=== PATIENT | male | born 1960 | race African-American/Black ===

== ENCOUNTER 2019-05-09 04:42 | Inpatient (IN) | payer MEDICARE, MEDICAID ==
[~2019-05-09] VITALS: Ht 165.1 cm; Wt 66.8 kg
[2019-05-09 05:32] LABS: Basophils # (auto) 0 uL; Basophils % (auto) 0.4 % (0.0-2.0); Eosinophils # (auto) 0.1 uL; Mean Corpuscular Hgb Conc. 32.4 g/dL (32.0-36.0); Monocytes # (auto) 0.7 uL; Neutrophils # (auto) 7.5 uL; White Blood Cell 9.3 10^3/uL (4.4-10.8)
[2019-05-09 05:35] LABS: Eosinophils % (auto) 1.3 % (0.0-7.0); Hematocrit 37.7 % (41.0-53.0); Hemoglobin 12.2 g/dL (13.5-17.5); Lymphocytes # (auto) 0.9 uL; Lymphocytes % (auto) 9.8 % (10.0-50.0); Mean Corpuscular Hemoglobin 25.4 pg (28.0-32.0); Mean Corpuscular Volume 78.5 fL (80.0-100.0); Monocytes % (auto) 7.3 % (0.0-12.0); Neutrophils % (auto) 81.2 % (37.0-80.0); Platelet Count (auto) 212 10^3/uL (140-450); Red Cell Distribution Width 18.4 % (11.8-14.3)
[2019-05-09 05:42] LABS: Calcium 9.7 mg/dL (8.5-10.1); Potassium 4.5 mmol/L (3.5-5.1)
[2019-05-09 05:44] LABS: BUN/Creatinine Ratio 5.2
[2019-05-09 05:45] LABS: INR 1.09 (0.9-1.15); Partial Thromboplastin Time 28.5 sec (23.64-32.05)
[2019-05-09 05:48] LABS: Bilirubin, Total 0.4 mg/dL (0.2-1.0); Total Protein 9.6 g/dL (6.4-8.2)
[2019-05-09] MEDS ORDERED: ONDANSETRON HCL 4 MG/2 ML VIAL IV ONE (06:00)
[2019-05-09] MEDS ORDERED: MORPHINE SULFATE 4 MG/ML SYR/VIAL IV ONE (06:00)
[2019-05-09] MEDS ORDERED: ENOXAPARIN SOD 60 MG/0.6 ML SYRINGE SC ONE (06:15)
[2019-05-09] MEDS ORDERED: HEPARIN SODIUM (PORCINE) 5000 UNITS/ML 1ML VIAL IV ONE (06:30)
[2019-05-09] MEDS ORDERED: METOPROLOL TARTRATE 1MG/1ML-5ML VIAL IV ONE (07:00)
[2019-05-09] MEDS ORDERED: NITROGLYCERIN 0.4 MG SL TAB SL PRN (07:15)
[2019-05-09] MEDS ORDERED: MORPHINE SULF INJ 2 MG/ML SYRINGE 1ML IV PRN (07:15)
[2019-05-09] MEDS ORDERED: ACETAMINOPHEN 325 MG TAB PO PRN (07:15)
[2019-05-09 07:42] LABS: Cholesterol 218 mg/dL (< 200); HDL Cholesterol 57 mg/dL (40-59); LDL Cholesterol 127 mg/dL (< 100); Triglycerides 167 mg/dL (< 150)
[2019-05-09] MEDS ORDERED: NITROGLYCERIN 50MG/250ML 250 ML IV ONE (07:46)
[2019-05-09] MEDS: ASPirin 81 mg TAB PO SCH (08:15)
--- NOTE | 2019-05-09 08:53 | NUR ---
trop 5.32 informed MD Moran at this time. pt to have [facility]
[2019-05-09] MEDS ORDERED: LIDOCAINE 2%HCL (LOCAL ANESTH.) INJ 20ML MDV ONE (09:45)
[2019-05-09] MEDS ORDERED: IODIXANOL 320MG/ML 100ML BTL IV ONE ×2 (09:45→10:03)
[2019-05-09] MEDS ORDERED: ANGIOMAX 250 MG VIAL IV ONE (09:58)
[2019-05-09] MEDS ORDERED: SODIUM CHL 0.9% 0 ML ONE (09:59)
[2019-05-09] MEDS ORDERED: fentaNYL CITRATE 100 MCG/2 ML VL ONE (09:59)
[2019-05-09] MEDS ORDERED: MIDAZOLAM HCL 1MG/1ML-2 ML VIAL ONE (09:59)
[2019-05-09] MEDS ORDERED: METOPROLOL TARTRATE 25 MG TAB PO SCH (10:00)
[2019-05-09] MEDS ORDERED: ENOXAPARIN SOD 60 MG/0.6 ML SYRINGE SC SCH ×2 (10:00→12:00)
[2019-05-09] MEDS: LISINOPRIL 10 MG TAB PO SCH (10:00)
[2019-05-09] MEDS: CLOPIDOGREL BISULFATE 75 MG TAB PO SCH (10:00)
[2019-05-09] MEDS: DOCUSATE SOD 100 MG CAP PO SCH (10:00)
[2019-05-09] MEDS ORDERED: ONDANSETRON HCL 4 MG/2 ML VIAL IM ONE (10:42)
[2019-05-09] MEDS ORDERED: ONDANSETRON HCL 4 MG/2 ML VIAL ONE (10:45)
[2019-05-09] MEDS ORDERED: hydrALAZINE HCL 25 MG TAB PO ONE (11:45)
[2019-05-09] MEDS ORDERED: ATENOLOL 25 MG TAB PO ONE (11:45)
[2019-05-09] MEDS ORDERED: amLODIPine BESYLATE 5 MG TAB PO ONE (11:45)
[2019-05-09] MEDS ORDERED: SODIUM CHLOR 0.9% PF (SALINE LOCK) 10ML VIAL/SYR IV SCH (14:00)
[2019-05-09] MEDS: SODIUM CHLOR 0.9% PF (SALINE LOCK) 10ML VIAL/SYR IV SCH ×2 (14:00→21:52)
[2019-05-09] MEDS ORDERED: ISOSORBIDE DINITRATE 10 MG TAB PO ONE (14:30)
--- NOTE | 2019-05-09 16:17 | NUR ---
Telemetry admit from [employer]elry Sales Associate DAR BARRETT admitted to Telemetry unit after SBAR received. Patient oriented to primary RN, unit, room, bed, and unit policies regarding patient care and visiting hours. Patient now on continuous telemetry monitoring, tele box # 50. Patient placed on bedside oxygen, weighed by bedscale and encouraged to call if they need something. All questions and concerns addressed, patient verbalized understanding. CAll light placed within reach and patient encouraged to call for assistance.
[2019-05-09] MEDS ORDERED: RANO500T3 (18:30)
[2019-05-09] MEDS ORDERED: CARV6.2551 (18:30)
[2019-05-09] MEDS ORDERED: SEVE800T10 (18:30)
[2019-05-09] MEDS ORDERED: ASPI1CHW5 (18:30)
[2019-05-09] MEDS ORDERED: ISOS20TA56 (18:30)
[2019-05-09] MEDS ORDERED: CLON0.2T (18:30)
[2019-05-09] MEDS ORDERED: BENA40TA7 (18:30)
[2019-05-09] MEDS ORDERED: ATOR20TA50 (18:30)
--- NOTE | 2019-05-09 19:30 | NUR ---
received pt from day rn poc reviewed
[2019-05-09] MEDS: ISOSORBIDE DINITRATE 10 MG TAB PO SCH (19:39)
--- NOTE | 2019-05-09 20:00 | NUR ---
right groin site dry and intact, pulses palpable
--- NOTE | 2019-05-09 20:46 | NUR ---
hospitalist paged pt has constant episodes of n/v
[2019-05-09] MEDS: ATORVASTATIN 20 MG TAB PO SCH (21:44)
[2019-05-09] MEDS: hydrALAZINE HCL 25 MG TAB PO SCH (21:45)
[2019-05-09] MEDS: ATENOLOL 25 MG TAB PO SCH (21:46)
[2019-05-09 22:00] VITALS: BP 148/94
--- NOTE | 2019-05-09 23:16 | NUR ---
pt resting comfortable no c/o nausea or pain, call light within reach
--- NOTE | 2019-05-10 00:14 | NUR ---
pt awoke c/o insomnia and hiccups, orders received from hospitalist
[2019-05-10] MEDS ORDERED: TEMAZEPAM 15 MG CAP PO PRN (00:15)
[2019-05-10] MEDS: DOCUSATE SOD 100 MG CAP PO SCH (00:36)
[2019-05-10] MEDS: ONDANSETRON HCL 4 MG/2 ML VIAL IV PRN ×2 (00:37→10:12)
[2019-05-10 05:00] VITALS: BP 143/84
[2019-05-10] MEDS: SODIUM CHLOR 0.9% PF (SALINE LOCK) 10ML VIAL/SYR IV SCH ×3 (06:29→22:06)
[2019-05-10] MEDS: ISOSORBIDE DINITRATE 10 MG TAB PO SCH ×3 (06:42→18:17)
--- NOTE | 2019-05-10 06:44 | NUR ---
awoke resp even and unlabored, right groin dressing dry and intact no c/o discomfort
--- NOTE | 2019-05-10 08:01 | NUR ---
report given to am nurse poc reviewed
--- NOTE | 2019-05-10 08:02 | NUR ---
Opening Shift Note Assumed care of patient, awake and alert, sitting up in bed. Patient stated that he is feeling much better this morning. No S/S of distress/SOB or pain. Instructed on POC and to call for assist PRN, will continue to monitor for changes Q1hr and PRN.
[2019-05-10 08:52] VITALS: BP 146/76
[2019-05-10] MEDS ORDERED: ASPirin 81 mg TAB PO SCH (10:00)
[2019-05-10] MEDS: CLOPIDOGREL BISULFATE 75 MG TAB PO SCH (10:13)
[2019-05-10] MEDS: hydrALAZINE HCL 25 MG TAB PO SCH ×2 (10:14→22:05)
[2019-05-10] MEDS: amLODIPine BESYLATE 5 MG TAB PO SCH (10:14)
[2019-05-10] MEDS: ASPirin 81 mg TAB PO SCH (10:15)
[2019-05-10] MEDS: ATENOLOL 25 MG TAB PO SCH ×2 (10:15→22:04)
[2019-05-10] MEDS: LISINOPRIL 10 MG TAB PO SCH (10:15)
--- NOTE | 2019-05-10 12:00 | NUR ---
Dialysis nurse at bedside. No dialysis order in eMAR yet.
[2019-05-10 12:43] VITALS: BP 156/85
[2019-05-10] MEDS ORDERED: SODIUM CHL 0.9% 1000 ML BAG XX ONE (13:00)
--- NOTE | 2019-05-10 13:15 | NUR ---
Nephrology Child Caregiver (Dr. Velez) Rounded on patient as per apparatus cleaner.
[2019-05-10] MEDS ORDERED: ISOS10TA2 PO ×2 (15:28→15:29)
[2019-05-10] MEDS ORDERED: AML5T PO (15:28)
[2019-05-10] MEDS ORDERED: HYDR-2691 PO (15:28)
[2019-05-10] MEDS ORDERED: ASPI81CH43 PO (15:28)
[2019-05-10] MEDS ORDERED: LISI10TA6 PO (15:28)
[2019-05-10] MEDS ORDERED: CLOP75TA28 PO (15:28)
[2019-05-10] MEDS ORDERED: ATOR20TA50 PO (15:28)
[2019-05-10] MEDS ORDERED: ATEN25TA PO (15:28)
[2019-05-10] MEDS ORDERED: OMNIPAQUE ORAL SOLN 500ml 12mg/ml PO ONE (15:46)
--- NOTE | 2019-05-10 16:00 | NUR ---
Dialysis Completed 2.2L taken off. B/P. 149/82
[2019-05-10 16:26] VITALS: BP 141/81
--- NOTE | 2019-05-10 19:10 | NUR ---
Opening Shift Note Received report from day shift nurseLyly. Assumed care of patient. Patient is awake, alert, orientated x 4. No S/S of distress/SOB or pain. Bed brakes are locked and call light is with in reach. Bed is in lowest position with side rails up x 2. HOB is 30 degrees. Instructed on POC and to call for assist PRN, will continue to monitor for changes Q1hr and PRN.
[2019-05-10 20:00] VITALS: BP 141/81
[2019-05-10] MEDS: ATORVASTATIN 20 MG TAB PO SCH (22:05)
[2019-05-10] MEDS: PANTOPRAZOLE 40 MG TAB PO SCH (22:05)
[2019-05-10 22:12] VITALS: BP 142/74
[2019-05-11] MEDS: ONDANSETRON HCL 4 MG/2 ML VIAL IV PRN (03:25)
--- NOTE | 2019-05-11 03:51 | NUR ---
N/V Pt exhibited some nausea and vomiting. Ondansetron 4mg IV given.
[2019-05-11 05:05] VITALS: BP 128/73
[2019-05-11] MEDS: SODIUM CHLOR 0.9% PF (SALINE LOCK) 10ML VIAL/SYR IV SCH (06:17)
[2019-05-11] MEDS: ISOSORBIDE DINITRATE 10 MG TAB PO SCH (06:18)
--- NOTE | 2019-05-11 07:30 | NUR ---
Opening Shift Note RECEIVED REPORT FROM NOC RN. Assumed care of patient, awake and alert. PATIENT ON OXYGEN AT 2 LPM VIA NASAL CANNULA WITH no S/S of distress/SOB or pain. BED IN LOWEST, LOCKED POSITION WITH SIDERAILS UP x2 AND CALL LIGHT WITHIN REACH. Instructed on POC and to call for assist PRN, will continue to monitor for changes Q1hr and PRN.
[2019-05-11 09:00] VITALS: BP 123/63
[2019-05-11] MEDS ORDERED: LACTULOSE 20Gm/30ML SOLN PO ONE (09:30)
[2019-05-11] MEDS: hydrALAZINE HCL 25 MG TAB PO SCH (10:00)
[2019-05-11] MEDS: DOCUSATE SOD 100 MG CAP PO SCH (10:05)
[2019-05-11] MEDS: PANTOPRAZOLE 40 MG TAB PO SCH (10:05)
[2019-05-11] MEDS: CLOPIDOGREL BISULFATE 75 MG TAB PO SCH (10:05)
[2019-05-11] MEDS: ASPirin 81 mg TAB PO SCH (10:05)
[2019-05-11] MEDS: LISINOPRIL 10 MG TAB PO SCH (10:06)
[2019-05-11] MEDS: amLODIPine BESYLATE 5 MG TAB PO SCH (10:07)
[2019-05-11] MEDS: ATENOLOL 25 MG TAB PO SCH (10:07)
[2019-05-11 13:00] VITALS: BP 147/82
[2019-05-11 13:13] VITALS: BP 123/63
--- NOTE | 2019-05-11 14:45 | NUR ---
TELE BOX SENT BACK TO ICU VIA BULLET.
--- NOTE | 2019-05-11 15:50 | NUR ---
assessment Patient is a 58 year old male who is alert and oriented. Patients cognitive abilities are intact. Prior to admission patient lived home with family and functioned with assistance. Per patient he will return home to his prior living arrangements post discharge and family will transport him home. Patient informed me he is on service with [facility] at 12pm. Patient has a daily caregiver Bibi. Patient has no safety issues returning home. Patient informed me he needs help with his medications. Patient will need a home health order for medication management and safety eval on discharge. I informed patient he has a right to speak to a high school social science teacher regarding all care. I informed patient he has a right to participate in any and all discharge planning. Patient does not have a POA and advanced directive. I have offered patient information on POA and advanced directives. I informed the patient the advantages and benefits of having an Advanced Directive. Patient verbalized understanding and agreed to discharge plan. Addendum: 05/11/19 at 1553 by Lynsey MCKINNEY Amended: Links added.
--- NOTE | 2019-05-11 15:53 | NUR ---
re-assessment Per ss consult community health for vitals and med management. Patient has been given a list of medicare providers. Per patient he has no preference on who provides service. MD [facility]. Waiting for reply back now. Addendum: 05/11/19 at 1554 by Lynsey Bailon Amended: Links added.
== END 2019-05-11 14:58 | disposition home health service (06) | DRG 280 ==
LOC: EDBD 04:42 → ER 04:42 → TELE 04:43 → TELE-WESTW 18:21
PROVIDERS: ADMIT Hospitalist; ATTEND Internal Medicine
PROC: B211YZZ Fluoroscopy of Multiple Coronary Arteries using Other Contrast (ICD-10-PCS; principal; 2019-05-09)
PROC: 5A1D70Z Performance of Urinary Filtration, Intermittent, Less than 6 Hours Per Day (ICD-10-PCS; 2019-05-10)
DX: I21.4 Non-ST elevation (NSTEMI) myocardial infarction (principal); N18.6 End stage renal disease; I12.0 Hypertensive chronic kidney disease with stage 5 chronic kidney disease or end stage renal disease; I16.9 Hypertensive crisis, unspecified; F41.9 Anxiety disorder, unspecified; R13.10 Dysphagia, unspecified; D50.9 Iron deficiency anemia, unspecified; I25.10 Atherosclerotic heart disease of native coronary artery without angina pectoris; I25.2 Old myocardial infarction; Z99.2 Dependence on renal dialysis; Z91.19 Patient's noncompliance with other medical treatment and regimen; Z95.5 Presence of coronary angioplasty implant and graft; Z79.899 Other long term (current) drug therapy
CPT/HCPCS: 36415; 71045; 74176; 80053; 80061; 80320; 83735; 83880; 84484; 85025; 85379; 85610; 85730; 87081; 93005; 96372; 96374; 96375; 99152; G0378; J1642; J2250; J2405; Q9967

== ENCOUNTER 2020-09-25 22:15 | Inpatient (IN) | payer MEDICARE, MEDICAID ==
[~2020-09-25] VITALS: Ht 167.6 cm; Wt 55.1 kg
[~2020-09-25 22:15] MED LIST: AML5T PO; ASPI1CHW5; ASPI81CH43 PO; ATEN25TA PO; ATOR20TA50; ATOR20TA50 PO; CLOP75TA28 PO; HYDR25TA87 PO; ISOS10TA2 PO; ISOS20TA5; LISI-716 PO; RANO500T3; SEVE800T10
[2020-09-25] MEDS ORDERED: MORPHINE SULFATE 4 MG/ML SYR/VIAL IV ONE (22:30)
[2020-09-25] MEDS ORDERED: ONDANSETRON HCL 4 MG/2 ML VIAL IV ONE (22:30)
[2020-09-25 23:07] LABS: Basophils # (auto) 0 10 ^3/uL (0-0.2); Basophils % (auto) 0.6 % (0.0-2.0); Eosinophils # (auto) 0.2 10 ^3/uL (0-0.8); Eosinophils % (auto) 2.2 % (0.0-7.0); Hematocrit 22.9 % (41.0-53.0); Hemoglobin 7.4 g/dL (13.5-17.5); Lymphocytes # (auto) 0.5 10 ^3/uL (0.4-5.4); Lymphocytes % (auto) 6.2 % (10.0-50.0); Mean Corpuscular Hemoglobin 25.7 pg (28.0-32.0); Mean Corpuscular Hgb Conc. 32.1 g/dL (32.0-36.0); Mean Corpuscular Volume 79.9 fL (80.0-100.0); Monocytes # (auto) 0.5 10 ^3/uL (0-1.3); Monocytes % (auto) 7.2 % (0.0-12.0); Neutrophils # (auto) 6.3 10 ^3/uL (1.6-8.6); Neutrophils % (auto) 83.8 % (37.0-80.0); Red Blood Cells 2.87 10^6/uL (4.5-5.90); Red Cell Distribution Width 19.5 % (11.8-14.3); White Blood Cell 7.5 10^3/uL (4.4-10.8)
[2020-09-25 23:26] LABS: BUN/Creatinine Ratio 5.7; Calcium 8.7 mg/dL (8.5-10.1); Potassium 4.3 mmol/L (3.5-5.1)
[2020-09-25 23:32] LABS: Bilirubin, Total 0.6 mg/dL (0.2-1.0); Magnesium 2.1 mg/dL (1.6-2.6); Total Protein 7.1 g/dL (6.4-8.2)
[2020-09-25] MEDS ORDERED: MORPHINE SULFATE INJECTION 2 MG/ML SYRG IV ONE (23:45)
[2020-09-25 23:48] VITALS: BP 110/71
[2020-09-26] VITALS (9 sets, daily range): BP systolic 100–123; BP diastolic 65–73
[2020-09-26] MEDS ORDERED: PIPERACILLIN-TAZOB 3.375GM 100 ML IV ONE (02:45)
[2020-09-26] MEDS ORDERED: AZITHROMYCIN 500MG/ 250ML 250 ML IV ONE (02:45)
[2020-09-26] MEDS ORDERED: ONDANSETRON HCL 4 MG/2 ML VIAL IV ONE (03:45)
[2020-09-26] MEDS ORDERED: TEMAZEPAM 15 MG CAP PO PRN (06:00)
[2020-09-26] MEDS ORDERED: ALBUTEROL SULF 2.5 MG/0.5ML(0.5%) NEB SOLN NEB PRN (06:00)
[2020-09-26] MEDS ORDERED: NITROGLYCERIN 0.4 MG SL TAB SL PRN (06:00)
[2020-09-26 07:41] LABS: Hematocrit 22.1 % (41.0-53.0)
[2020-09-26] MEDS: SEVELAMER 800 MG TAB PO SCH ×3 (08:30→18:46)
[2020-09-26] MEDS ORDERED: SODIUM CHL 0.9% 1000 ML BAG XX ONE (08:45)
[2020-09-26] MEDS ORDERED: cefTRIAXone 1GM/50ML D5W 50 ML IV SCH (09:00)
[2020-09-26] MEDS: CLOPIDOGREL BISULFATE 75 MG TAB PO SCH (09:56)
[2020-09-26] MEDS ORDERED: ATENOLOL 25 MG TAB PO SCH (10:00)
[2020-09-26] MEDS ORDERED: ASPirin 81 mg TAB PO SCH (10:00)
[2020-09-26] MEDS ORDERED: amLODIPine BESYLATE 5 MG TAB PO SCH (10:00)
[2020-09-26] MEDS ORDERED: DexAMETHasone SOD PHOS 10MG/1ML VIAL INJ IV SCH (10:00)
[2020-09-26] MEDS: ONDANSETRON HCL 4 MG/2 ML VIAL IV PRN (10:57)
[2020-09-26] MEDS: MORPHINE SULFATE INJECTION 2 MG/ML SYRG IV PRN ×2 (10:57→18:46)
[2020-09-26] MEDS: RANOLAZINE ER 500 MG TAB PO SCH (17:21)
[2020-09-26] MEDS: ATENOLOL 25 MG TAB PO SCH (17:21)
[2020-09-26] MEDS ORDERED: AZITHROMYCIN 500MG/ 250ML 250 ML IV SCH (21:00)
[2020-09-26] MEDS ORDERED: EPOETIN ALFA-EPBX 10,000 UNIT/1ML VIAL SC ONE (21:00)
[2020-09-26] MEDS ORDERED: VANCOMYCIN PER PHARMACY 0 MG IV SCH (21:15)
[2020-09-26] MEDS ORDERED: PIPERACILLIN-TAZOB 2.25GM 0.75 GM in D5W 5% 50 ML IV SCH (21:15)
[2020-09-26] MEDS ORDERED: VANCOMYCIN 1GM/250ML 250 ML IV ONE (21:30)
[2020-09-27] MEDS: ATENOLOL 25 MG TAB PO SCH ×3 (00:06→21:59)
[2020-09-27] MEDS: ATORVASTATIN 20 MG TAB PO SCH ×2 (00:07→22:00)
[2020-09-27] MEDS: RANOLAZINE ER 500 MG TAB PO SCH ×3 (00:07→21:58)
[2020-09-27] MEDS: PIPERACILLIN-TAZOB 2.25GM 50 ML IV SCH ×5 (00:08→22:00)
[2020-09-27] MEDS: ACETAMINOPHEN 325 MG TAB PO PRN (01:05)
[2020-09-27 06:41] LABS: Eosinophils # (auto) 0 10 ^3/uL (0-0.8); Eosinophils % (auto) 0.1 % (0.0-7.0); Lymphocytes # (auto) 0.5 10 ^3/uL (0.4-5.4); Mean Corpuscular Volume 80.2 fL (80.0-100.0); Monocytes # (auto) 0.6 10 ^3/uL (0-1.3)
[2020-09-27 06:42] LABS: Basophils # (auto) 0.1 10 ^3/uL (0-0.2); Basophils % (auto) 0.8 % (0.0-2.0); Hematocrit 28.5 % (41.0-53.0); Hemoglobin 9.3 g/dL (13.5-17.5); Lymphocytes % (auto) 6.1 % (10.0-50.0); Mean Corpuscular Hemoglobin 26.3 pg (28.0-32.0); Mean Corpuscular Hgb Conc. 32.8 g/dL (32.0-36.0); Monocytes % (auto) 8.2 % (0.0-12.0); Neutrophils # (auto) 6.6 10 ^3/uL (1.6-8.6); Neutrophils % (auto) 84.8 % (37.0-80.0); Red Blood Cells 3.55 10^6/uL (4.5-5.90); Red Cell Distribution Width 18.7 % (11.8-14.3); White Blood Cell 7.8 10^3/uL (4.4-10.8)
[2020-09-27 06:52] LABS: Albumin 3.3 g/dL (3.4-5.0); Calcium 9.4 mg/dL (8.5-10.1); Potassium 4.4 mmol/L (3.5-5.1)
[2020-09-27 06:56] LABS: BUN/Creatinine Ratio 6.2; Bilirubin, Total 0.6 mg/dL (0.2-1.0)
[2020-09-27] MEDS: MORPHINE SULFATE INJECTION 2 MG/ML SYRG IV PRN ×2 (08:29→21:33)
[2020-09-27] MEDS: CLOPIDOGREL BISULFATE 75 MG TAB PO SCH (09:51)
[2020-09-27] MEDS: ASPirin 81 mg TAB PO SCH (09:51)
[2020-09-27] MEDS: SEVELAMER 800 MG TAB PO SCH ×3 (09:53→18:00)
[2020-09-27] MEDS: ONDANSETRON HCL 4 MG/2 ML VIAL IV PRN (19:39)
[2020-09-27] MEDS ORDERED: AZITHROMYCIN 250 MG TAB PO ONE (21:45)
[2020-09-28] MEDS: ONDANSETRON HCL 4 MG/2 ML VIAL IV PRN ×3 (05:02→22:41)
[2020-09-28] MEDS: PIPERACILLIN-TAZOB 2.25GM 50 ML IV SCH ×3 (05:57→21:33)
[2020-09-28] MEDS ORDERED: SODIUM CHL 0.9% 1000 ML BAG XX ONE (07:00)
[2020-09-28] MEDS: SEVELAMER 800 MG TAB PO SCH ×3 (08:00→18:16)
[2020-09-28 09:27] LABS: Basophils # (auto) 0.1 10 ^3/uL (0-0.2); Eosinophils # (auto) 0 10 ^3/uL (0-0.8); Hematocrit 24.4 % (41.0-53.0); Hemoglobin 7.9 g/dL (13.5-17.5); Lymphocytes # (auto) 0.4 10 ^3/uL (0.4-5.4); Monocytes # (auto) 0.6 10 ^3/uL (0-1.3); Neutrophils # (auto) 5.3 10 ^3/uL (1.6-8.6); White Blood Cell 6.4 10^3/uL (4.4-10.8)
[2020-09-28 09:29] LABS: Basophils % (auto) 0.8 % (0.0-2.0); Eosinophils % (auto) 0.6 % (0.0-7.0); Lymphocytes % (auto) 6.3 % (10.0-50.0); Mean Corpuscular Hemoglobin 25.8 pg (28.0-32.0); Mean Corpuscular Hgb Conc. 32.2 g/dL (32.0-36.0); Mean Corpuscular Volume 79.9 fL (80.0-100.0); Neutrophils % (auto) 83.3 % (37.0-80.0); Nucleated Red Blood Cells % 0.2 %; Red Blood Cells 3.06 10^6/uL (4.5-5.90); Red Cell Distribution Width 19.6 % (11.8-14.3)
[2020-09-28 09:49] LABS: BUN/Creatinine Ratio 6.9; Calcium 8.2 mg/dL (8.5-10.1); Potassium 4.4 mmol/L (3.5-5.1)
[2020-09-28] MEDS: RANOLAZINE ER 500 MG TAB PO SCH ×2 (10:00→21:33)
[2020-09-28] MEDS: ATENOLOL 25 MG TAB PO SCH (10:00)
[2020-09-28] MEDS: AZITHROMYCIN 250 MG TAB PO SCH (10:00)
[2020-09-28] MEDS: ASPirin 81 mg TAB PO SCH (10:00)
[2020-09-28] MEDS: CLOPIDOGREL BISULFATE 75 MG TAB PO SCH (10:00)
[2020-09-28] MEDS ORDERED: B-COMPLEX W/ C & FOLIC ACID(NEPHROVITE TAB) PO ONE (12:15)
[2020-09-28 13:00] VITALS: BP 117/63
[2020-09-28] MEDS ORDERED: PIPERACILLIN-TAZOB 2.25GM 0.75 GM in D5W 5% 50 ML IV ONE (14:30)
[2020-09-28 15:38] VITALS: BP 117/63
[2020-09-28 17:00] VITALS: BP 129/70
[2020-09-28] MEDS ORDERED: VANCOMYCIN 1GM/250ML 250 ML IV ONE (18:00)
[2020-09-28] MEDS: Nepro With Carbsteady ButterPecan 8oz Carton PO SCH (18:16)
[2020-09-28] MEDS: MORPHINE SULFATE INJECTION 2 MG/ML SYRG IV PRN ×2 (18:17→22:41)
[2020-09-28] MEDS ORDERED: EPOETIN ALFA-EPBX 4,000 UNIT/ML VIAL SC ONE (21:00)
[2020-09-28 21:24] VITALS: BP 121/68
[2020-09-28] MEDS: ATORVASTATIN 20 MG TAB PO SCH (21:34)
[2020-09-29] VITALS (7 sets, daily range): BP systolic 120–135; BP diastolic 68–74
[2020-09-29] MEDS: ONDANSETRON HCL 4 MG/2 ML VIAL IV PRN ×3 (03:30→14:58)
[2020-09-29] MEDS: MORPHINE SULFATE INJECTION 2 MG/ML SYRG IV PRN ×4 (03:30→14:58)
[2020-09-29] MEDS: PIPERACILLIN-TAZOB 2.25GM 50 ML IV SCH (05:55)
[2020-09-29 06:39] LABS: Basophils # (auto) 0 10 ^3/uL (0-0.2); Basophils % (auto) 0.3 % (0.0-2.0); Eosinophils # (auto) 0.2 10 ^3/uL (0-0.8); Eosinophils % (auto) 2.1 % (0.0-7.0); Hematocrit 28.7 % (41.0-53.0); Hemoglobin 9.4 g/dL (13.5-17.5); Lymphocytes # (auto) 0.4 10 ^3/uL (0.4-5.4); Lymphocytes % (auto) 5.7 % (10.0-50.0); Mean Corpuscular Hemoglobin 26.2 pg (28.0-32.0); Mean Corpuscular Hgb Conc. 32.9 g/dL (32.0-36.0); Mean Corpuscular Volume 79.5 fL (80.0-100.0); Monocytes # (auto) 0.7 10 ^3/uL (0-1.3); Monocytes % (auto) 10.3 % (0.0-12.0); Neutrophils # (auto) 5.9 10 ^3/uL (1.6-8.6); Neutrophils % (auto) 81.6 % (37.0-80.0); Nucleated Red Blood Cells % 0.1 %; Red Blood Cells 3.61 10^6/uL (4.5-5.90); Red Cell Distribution Width 19.1 % (11.8-14.3); White Blood Cell 7.3 10^3/uL (4.4-10.8)
[2020-09-29] MEDS: Nepro With Carbsteady ButterPecan 8oz Carton PO SCH ×2 (08:21→17:49)
[2020-09-29] MEDS: SEVELAMER 800 MG TAB PO SCH ×3 (08:21→17:49)
[2020-09-29] MEDS: B-COMPLEX W/ C & FOLIC ACID(NEPHROVITE TAB) PO SCH (09:47)
[2020-09-29] MEDS: CLOPIDOGREL BISULFATE 75 MG TAB PO SCH (09:47)
[2020-09-29] MEDS: RANOLAZINE ER 500 MG TAB PO SCH ×2 (09:48→22:53)
[2020-09-29] MEDS: ATENOLOL 25 MG TAB PO SCH (09:49)
[2020-09-29] MEDS: AZITHROMYCIN 250 MG TAB PO SCH (09:49)
[2020-09-29] MEDS ORDERED: PANTOPRAZOLE 40 MG/10 ML VIAL INJ IV ONE (10:45)
[2020-09-29] MEDS: ATORVASTATIN 20 MG TAB PO SCH (22:53)
[2020-09-30 05:00] VITALS: BP 138/69
[2020-09-30 08:00] VITALS: BP 138/76
[2020-09-30] MEDS: SEVELAMER 800 MG TAB PO SCH ×3 (08:14→18:00)
[2020-09-30] MEDS: Nepro With Carbsteady ButterPecan 8oz Carton PO SCH ×2 (08:14→18:00)
[2020-09-30 09:05] VITALS: BP 138/76
[2020-09-30] MEDS: cefTRIAXone 1GM/50ML D5W 50 ML IV SCH (09:46)
[2020-09-30] MEDS: PANTOPRAZOLE 40 MG/10 ML VIAL INJ IV SCH (09:46)
[2020-09-30] MEDS: B-COMPLEX W/ C & FOLIC ACID(NEPHROVITE TAB) PO SCH (09:46)
[2020-09-30] MEDS: RANOLAZINE ER 500 MG TAB PO SCH ×2 (09:47→21:32)
[2020-09-30] MEDS: CLOPIDOGREL BISULFATE 75 MG TAB PO SCH (09:47)
[2020-09-30] MEDS: MORPHINE SULFATE INJECTION 2 MG/ML SYRG IV PRN ×3 (09:48→20:26)
[2020-09-30] MEDS: AZITHROMYCIN 250 MG TAB PO SCH (09:48)
[2020-09-30] MEDS: ATENOLOL 25 MG TAB PO SCH (09:48)
[2020-09-30] MEDS: ONDANSETRON HCL 4 MG/2 ML VIAL IV PRN (09:49)
[2020-09-30] MEDS ORDERED: ERGOCALCIFEROL 50,000 UNIT(1.25MG) CAP PO SCH (10:00)
[2020-09-30 10:17] LABS: Basophils # (auto) 0 10 ^3/uL (0-0.2); Eosinophils # (auto) 0.1 10 ^3/uL (0-0.8); Eosinophils % (auto) 2.2 % (0.0-7.0); Hemoglobin 10.2 g/dL (13.5-17.5); Lymphocytes # (auto) 0.4 10 ^3/uL (0.4-5.4); Monocytes # (auto) 0.6 10 ^3/uL (0-1.3); Neutrophils # (auto) 5.5 10 ^3/uL (1.6-8.6); Neutrophils % (auto) 82.1 % (37.0-80.0); Nucleated Red Blood Cells % 0.1 %
[2020-09-30 10:19] LABS: Basophils % (auto) 0.3 % (0.0-2.0); Hematocrit 31.9 % (41.0-53.0); Lymphocytes % (auto) 6.5 % (10.0-50.0); Mean Corpuscular Hemoglobin 25.5 pg (28.0-32.0); Mean Corpuscular Volume 79.8 fL (80.0-100.0); Monocytes % (auto) 8.9 % (0.0-12.0); Red Blood Cells 3.99 10^6/uL (4.5-5.90); Red Cell Distribution Width 19.4 % (11.8-14.3); White Blood Cell 6.8 10^3/uL (4.4-10.8)
[2020-09-30 10:55] LABS: BUN/Creatinine Ratio 6.3; Potassium 4.1 mmol/L (3.5-5.1)
[2020-09-30] MEDS: METOCLOPRAMIDE HCL 5MG/ml INJ 2ml VIAL IV SCH ×2 (12:28→21:31)
[2020-09-30 13:00] VITALS: BP 149/55
[2020-09-30] MEDS: DOXYCYCLINE 100MG/250ML 250 ML IV SCH (16:25)
[2020-09-30] MEDS: ATORVASTATIN 20 MG TAB PO SCH (21:32)
[2020-09-30 22:00] VITALS: BP 147/77
[2020-09-30] MEDS: ACETAMINOPHEN 325 MG TAB PO PRN (23:15)
[2020-10-01] MEDS: DOXYCYCLINE 100MG/250ML 250 ML IV SCH ×2 (03:34→16:00)
[2020-10-01 05:00] VITALS: BP 133/71
[2020-10-01] MEDS ORDERED: SODIUM CHL 0.9% 1000 ML BAG XX ONE (07:00)
[2020-10-01 08:00] VITALS: BP 124/70
[2020-10-01] MEDS: Nepro With Carbsteady ButterPecan 8oz Carton PO SCH ×2 (08:00→18:33)
[2020-10-01] MEDS: SEVELAMER 800 MG TAB PO SCH ×3 (08:00→18:33)
[2020-10-01 08:11] LABS: Basophils # (auto) 0 10 ^3/uL (0-0.2); Eosinophils # (auto) 0.1 10 ^3/uL (0-0.8); Hemoglobin 10.1 g/dL (13.5-17.5); White Blood Cell 6.8 10^3/uL (4.4-10.8)
[2020-10-01 08:13] LABS: Basophils % (auto) 0.5 % (0.0-2.0); Eosinophils % (auto) 1.6 % (0.0-7.0); Hematocrit 32.1 % (41.0-53.0); Lymphocytes # (auto) 0.4 10 ^3/uL (0.4-5.4); Lymphocytes % (auto) 5.2 % (10.0-50.0); Mean Corpuscular Hgb Conc. 31.5 g/dL (32.0-36.0); Mean Corpuscular Volume 79.4 fL (80.0-100.0); Monocytes % (auto) 14.1 % (0.0-12.0); Neutrophils # (auto) 5.3 10 ^3/uL (1.6-8.6); Neutrophils % (auto) 78.6 % (37.0-80.0); Nucleated Red Blood Cells % 0.2 %; Red Blood Cells 4.05 10^6/uL (4.5-5.90); Red Cell Distribution Width 18.9 % (11.8-14.3)
[2020-10-01 08:32] LABS: Calcium 9.5 mg/dL (8.5-10.1); Potassium 4.1 mmol/L (3.5-5.1)
[2020-10-01 08:36] LABS: Bilirubin, Total 0.6 mg/dL (0.2-1.0); Total Protein 7.6 g/dL (6.4-8.2)
[2020-10-01] MEDS: RANOLAZINE ER 500 MG TAB PO SCH ×2 (10:00→21:38)
[2020-10-01] MEDS: METOCLOPRAMIDE HCL 5MG/ml INJ 2ml VIAL IV SCH ×2 (10:00→21:59)
[2020-10-01] MEDS: PANTOPRAZOLE 40 MG/10 ML VIAL INJ IV SCH (10:00)
[2020-10-01 12:00] VITALS: BP 110/64
[2020-10-01] MEDS: B-COMPLEX W/ C & FOLIC ACID(NEPHROVITE TAB) PO SCH (13:40)
[2020-10-01] MEDS: cefTRIAXone 1GM/50ML D5W 50 ML IV SCH (13:40)
[2020-10-01] MEDS: CLOPIDOGREL BISULFATE 75 MG TAB PO SCH (13:40)
[2020-10-01] MEDS: LACTULOSE 20Gm/30ML SOLN PO SCH (13:40)
[2020-10-01] MEDS: ATENOLOL 25 MG TAB PO SCH (13:40)
[2020-10-01 16:00] VITALS: BP 125/68
[2020-10-01] MEDS ORDERED: EPOETIN ALFA-EPBX 4,000 UNIT/ML VIAL SC ONE (21:00)
[2020-10-01] MEDS: ATORVASTATIN 20 MG TAB PO SCH (21:38)
[2020-10-01 22:00] VITALS: BP 123/71
[2020-10-01] MEDS: MORPHINE SULFATE INJECTION 2 MG/ML SYRG IV PRN (23:30)
[2020-10-02] MEDS: DOXYCYCLINE 100MG/250ML 250 ML IV SCH ×2 (03:59→16:00)
[2020-10-02 05:00] VITALS: BP 126/66
[2020-10-02 08:09] VITALS: BP 126/66
[2020-10-02] MEDS: Nepro With Carbsteady ButterPecan 8oz Carton PO SCH (09:27)
[2020-10-02] MEDS: SEVELAMER 800 MG TAB PO SCH ×2 (09:28→12:00)
[2020-10-02] MEDS: METOCLOPRAMIDE HCL 5MG/ml INJ 2ml VIAL IV SCH (09:28)
[2020-10-02] MEDS: LACTULOSE 20Gm/30ML SOLN PO SCH ×3 (09:28→10:00)
[2020-10-02] MEDS: cefTRIAXone 1GM/50ML D5W 50 ML IV SCH (09:28)
[2020-10-02] MEDS: B-COMPLEX W/ C & FOLIC ACID(NEPHROVITE TAB) PO SCH (09:29)
[2020-10-02] MEDS: CLOPIDOGREL BISULFATE 75 MG TAB PO SCH (09:29)
[2020-10-02] MEDS: RANOLAZINE ER 500 MG TAB PO SCH (09:30)
[2020-10-02] MEDS ORDERED: PANT40TA2 PO (09:31)
[2020-10-02] MEDS ORDERED: ERGO1CAP23 PO (09:31)
[2020-10-02] MEDS ORDERED: FOLITAB23 OR (09:33)
[2020-10-02] MEDS: PANTOPRAZOLE 40 MG/10 ML VIAL INJ IV SCH (09:34)
[2020-10-02] MEDS: ATENOLOL 25 MG TAB PO SCH (10:00)
[2020-10-02] MEDS: MORPHINE SULFATE INJECTION 2 MG/ML SYRG IV PRN (10:12)
[2020-10-02 11:34] VITALS: BP 110/64
[2020-10-02 11:47] VITALS: BP 110/64
[2020-10-03] MEDS ORDERED: SODIUM CHL 0.9% 1000 ML BAG XX ONE (07:00)
[2020-10-03] MEDS ORDERED: EPOETIN ALFA-EPBX 4,000 UNIT/ML VIAL SC ONE (21:00)
== END 2020-10-02 16:03 | disposition home health service (06) | DRG 177 ==
LOC: EDBD 22:15 → EDUNIT# 22:15 → ER 22:17 → TELE 09-26 05:52 → TELE-CENTR 09-28 12:35
PROVIDERS: ADMIT Nurse Practitioner; ATTEND Internal Medicine
PROC: 5A09357 Assistance with Respiratory Ventilation, Less than 24 Consecutive Hours, Continuous Positive Airway Pressure (ICD-10-PCS; 2020-09-25)
PROC: 30233N1 Transfusion of Nonautologous Red Blood Cells into Peripheral Vein, Percutaneous Approach (ICD-10-PCS; principal; 2020-09-26)
PROC: 5A1D70Z Performance of Urinary Filtration, Intermittent, Less than 6 Hours Per Day (ICD-10-PCS; 2020-09-26)
PROC: 5A1D70Z Performance of Urinary Filtration, Intermittent, Less than 6 Hours Per Day (ICD-10-PCS; 2020-09-28)
PROC: 5A1D70Z Performance of Urinary Filtration, Intermittent, Less than 6 Hours Per Day (ICD-10-PCS; 2020-10-01)
DX: J15.212 Pneumonia due to Methicillin resistant Staphylococcus aureus (principal); N18.6 End stage renal disease; I21.A1 Myocardial infarction type 2; J96.21 Acute and chronic respiratory failure with hypoxia; I50.41 Acute combined systolic (congestive) and diastolic (congestive) heart failure; I13.2 Hypertensive heart and chronic kidney disease with heart failure and with stage 5 chronic kidney disease, or end stage renal disease; E44.1 Mild protein-calorie malnutrition; I25.10 Atherosclerotic heart disease of native coronary artery without angina pectoris; I27.20 Pulmonary hypertension, unspecified; D63.1 Anemia in chronic kidney disease; G89.29 Other chronic pain; E55.9 Vitamin D deficiency, unspecified; I35.0 Nonrheumatic aortic (valve) stenosis; L89.159 Pressure ulcer of sacral region, unspecified stage; Z20.822 Contact with and (suspected) exposure to COVID-19; Z79.02 Long term (current) use of antithrombotics/antiplatelets; Z79.899 Other long term (current) drug therapy; Z98.61 Coronary angioplasty status; Z99.2 Dependence on renal dialysis; I25.2 Old myocardial infarction
CPT/HCPCS: 36415; 36600; 71045; 71250; 74176; 80048; 80053; 80202; 82306; 82565; 82805; 83735; 83880; 84484; 85014; 85018; 85025; 86850; 86900; 86901; 86920; 87040; 87340; 87426; 90935; 93005; 93306; 94660; 96365; 96375; 97110; 97116; 97530; 99291; C9113; G0378; J0696; J1100; J1642; J2405; J2543; J3490; J7060

== ENCOUNTER 2020-10-15 00:14 | Inpatient (IN) | payer MEDICARE, MEDICAID ==
[~2020-10-15] VITALS: Ht 165.1 cm; Wt 50.2 kg
[~2020-10-15 00:14] MED LIST changes: -ASPI1CHW5; +ERGO1CAP23 PO; +FOLITAB23 OR; -LISI-716 PO; +PANT40TA2 PO
[2020-10-15 01:27] LABS: Basophils # (auto) 0 10 ^3/uL (0-0.2); Eosinophils # (auto) 0.2 10 ^3/uL (0-0.8); Lymphocytes # (auto) 0.4 10 ^3/uL (0.4-5.4); Nucleated Red Blood Cells % 0.1 %; White Blood Cell 13.2 10^3/uL (4.4-10.8)
[2020-10-15 01:29] LABS: Eosinophils % (auto) 1.7 % (0.0-7.0); Hematocrit 25.6 % (41.0-53.0); Hemoglobin 8.3 g/dL (13.5-17.5); Lymphocytes % (auto) 3.3 % (10.0-50.0); Mean Corpuscular Hemoglobin 24.5 pg (28.0-32.0); Mean Corpuscular Hgb Conc. 32.2 g/dL (32.0-36.0); Mean Corpuscular Volume 76.1 fL (80.0-100.0); Monocytes # (auto) 0.8 10 ^3/uL (0-1.3); Neutrophils # (auto) 11.7 10 ^3/uL (1.6-8.6); Red Blood Cells 3.37 10^6/uL (4.5-5.90); Red Cell Distribution Width 20.9 % (11.8-14.3)
[2020-10-15] MEDS ORDERED: fentaNYL CITRATE 100 MCG/2 ML VL IV ONE (01:30)
[2020-10-15] MEDS ORDERED: ACETAMINOPHEN 500 MG TAB PO ONE (01:30)
[2020-10-15] MEDS ORDERED: ONDANSETRON HCL 4 MG/2 ML VIAL IV ONE (01:30)
[2020-10-15 01:39] LABS: Albumin 2.9 g/dL (3.4-5.0); BUN/Creatinine Ratio 6.6; Calcium 8.8 mg/dL (8.5-10.1); Magnesium 2.2 mg/dL (1.6-2.6)
[2020-10-15 01:41] LABS: INR 1.95 (0.9-1.15)
[2020-10-15 01:44] LABS: Bilirubin, Total 0.6 mg/dL (0.2-1.0); Total Protein 7.5 g/dL (6.4-8.2)
[2020-10-15 02:18] LABS: Potassium 5.6 mmol/L (3.5-5.1)
[2020-10-15] MEDS ORDERED: SODIUM BICARBONATE 8.4% INJ 50ML SYRINGE IV ONE (02:30)
[2020-10-15] MEDS ORDERED: DEXTROSE (50%) 50ML SYRG IV ONE ×2 (02:30→09:15)
[2020-10-15] MEDS ORDERED: InsuLIN REG 1unit/0.01ml Soln (100units/ml) IV ONE ×2 (02:30→09:15)
[2020-10-15] MEDS ORDERED: SODIUM ZIRCONIUM CYCL 10 GM PAK PO ONE (02:30)
[2020-10-15] MEDS ORDERED: MORPHINE SULF INJ 2 MG/ML SYRINGE 1ML IV PRN (03:00)
[2020-10-15] MEDS ORDERED: ACETAMINOPHEN 325 MG TAB PO PRN (03:00)
[2020-10-15] MEDS ORDERED: NITROGLYCERIN 0.4 MG SL TAB SL PRN (03:00)
[2020-10-15] MEDS ORDERED: TEMAZEPAM 15 MG CAP PO PRN (03:00)
[2020-10-15] MEDS: ONDANSETRON HCL 4 MG/2 ML VIAL IV PRN ×2 (05:20→10:51)
[2020-10-15 05:35] VITALS: BP 127/77
[2020-10-15 06:21] VITALS: BP 127/77
[2020-10-15] MEDS: SEVELAMER 800 MG TAB PO SCH ×3 (08:00→18:00)
[2020-10-15 08:30] VITALS: BP 135/62
[2020-10-15 08:44] LABS: Potassium 5.8 mmol/L (3.5-5.1)
[2020-10-15] MEDS ORDERED: NITROGLYCERIN 0.4MG/HR TOPICAL PATCH TD ONE (08:45)
[2020-10-15] MEDS ORDERED: SODIUM BICARBONATE 8.4 % INJ 50ML VIAL IV ONE (09:15)
[2020-10-15] MEDS ORDERED: CALCIUM GLUC 1,000mg/50ml-NS 50 ML IV ONE (09:15)
[2020-10-15] MEDS: RANOLAZINE ER 500 MG TAB PO SCH ×2 (09:20→21:50)
[2020-10-15] MEDS: CLOPIDOGREL BISULFATE 75 MG TAB PO SCH (09:21)
[2020-10-15] MEDS: AZITHROMYCIN 500MG/ 250ML 250 ML IV SCH (09:21)
[2020-10-15] MEDS: PANTOPRAZOLE 40 MG TAB PO SCH (09:21)
[2020-10-15] MEDS ORDERED: cefTRIAXone 1GM/50ML D5W 50 ML IV ONE (09:30)
[2020-10-15] MEDS: ASPirin 81 mg TAB PO SCH (09:33)
[2020-10-15] MEDS: ATENOLOL 25 MG TAB PO SCH ×3 (10:00→21:51)
[2020-10-15] MEDS ORDERED: PANTOPRAZOLE 40 MG TAB PO SCH (10:00)
[2020-10-15] MEDS: hydrALAZINE HCL 25 MG TAB PO SCH ×2 (10:00→21:51)
[2020-10-15] MEDS: amLODIPine BESYLATE 5 MG TAB PO SCH ×2 (10:00→13:22)
[2020-10-15] MEDS: MORPHINE SULF INJ 2 MG/ML SYRINGE 1ML IV PRN ×2 (10:51→18:25)
[2020-10-15] MEDS: PROMETHAZINE HCL 25 MG/ML 1ML IV PRN ×2 (12:03→18:25)
[2020-10-15 12:30] VITALS: BP 127/73
[2020-10-15] MEDS: CLINDAMYCIN 300MG IV 50 ML IV SCH ×2 (13:42→21:50)
[2020-10-15 14:34] LABS: Calcium 8.9 mg/dL (8.5-10.1)
[2020-10-15 15:04] LABS: Potassium 5.6 mmol/L (3.5-5.1)
[2020-10-15 17:00] VITALS: BP 138/69
[2020-10-15] MEDS ORDERED: SODIUM CHL 0.9% 1000 ML BAG XX ONE (17:00)
[2020-10-15 22:00] VITALS: BP 112/69
[2020-10-15] MEDS ORDERED: ATORVASTATIN 20 MG TAB PO SCH (22:00)
[2020-10-16 05:00] VITALS: BP 109/69
[2020-10-16] MEDS: MORPHINE SULF INJ 2 MG/ML SYRINGE 1ML IV PRN ×2 (05:11→16:53)
[2020-10-16] MEDS: PROMETHAZINE HCL 25 MG/ML 1ML IV PRN ×2 (05:11→16:53)
[2020-10-16] MEDS: CLINDAMYCIN 300MG IV 50 ML IV SCH ×2 (05:40→14:21)
[2020-10-16 06:07] LABS: Basophils # (auto) 0.1 10 ^3/uL (0-0.2); Lymphocytes # (auto) 0.6 10 ^3/uL (0.4-5.4); White Blood Cell 9.1 10^3/uL (4.4-10.8)
[2020-10-16 06:08] LABS: Basophils % (auto) 0.6 % (0.0-2.0); Eosinophils # (auto) 0.1 10 ^3/uL (0-0.8); Eosinophils % (auto) 0.6 % (0.0-7.0); Hematocrit 25.1 % (41.0-53.0); Hemoglobin 8.3 g/dL (13.5-17.5); Lymphocytes % (auto) 6.5 % (10.0-50.0); Mean Corpuscular Hemoglobin 25.1 pg (28.0-32.0); Mean Corpuscular Volume 76.1 fL (80.0-100.0); Monocytes # (auto) 0.7 10 ^3/uL (0-1.3); Monocytes % (auto) 7.6 % (0.0-12.0); Neutrophils # (auto) 7.7 10 ^3/uL (1.6-8.6); Neutrophils % (auto) 84.7 % (37.0-80.0); Red Blood Cells 3.29 10^6/uL (4.5-5.90)
[2020-10-16 06:26] LABS: Potassium 4.9 mmol/L (3.5-5.1)
[2020-10-16 06:27] LABS: Red Cell Distribution Width 20.8 % (11.8-14.3)
[2020-10-16 06:34] LABS: BUN/Creatinine Ratio 5.4; Bilirubin, Total 0.7 mg/dL (0.2-1.0); Total Protein 7.4 g/dL (6.4-8.2)
[2020-10-16 08:00] VITALS: BP 103/67
[2020-10-16] MEDS: SEVELAMER 800 MG TAB PO SCH ×3 (08:46→18:00)
[2020-10-16] MEDS ORDERED: cefTRIAXone 1GM/50ML D5W 50 ML IV SCH (09:00)
[2020-10-16] MEDS: AZITHROMYCIN 500MG/ 250ML 250 ML IV SCH (09:36)
[2020-10-16] MEDS: PANTOPRAZOLE 40 MG TAB PO SCH (09:36)
[2020-10-16] MEDS: amLODIPine BESYLATE 5 MG TAB PO SCH (09:36)
[2020-10-16] MEDS: CLOPIDOGREL BISULFATE 75 MG TAB PO SCH (09:36)
[2020-10-16] MEDS: hydrALAZINE HCL 25 MG TAB PO SCH (09:36)
[2020-10-16] MEDS: RANOLAZINE ER 500 MG TAB PO SCH (09:36)
[2020-10-16] MEDS: ASPirin 81 mg TAB PO SCH (09:36)
[2020-10-16] MEDS: ATENOLOL 25 MG TAB PO SCH (09:37)
[2020-10-16 12:01] VITALS: BP 96/57
[2020-10-16] MEDS ORDERED: CLOPIDOGREL BISULFATE 75 MG TAB PO ONE (13:15)
[2020-10-16 16:00] VITALS: BP 103/61
[2020-10-16] MEDS ORDERED: IPRATROPIUM BROM 0.5 MG/2.5ML INH SOL NEB SCH (18:00)
[2020-10-16] MEDS ORDERED: ALBUTEROL SULF 2.5 MG/0.5ML(0.5%) NEB SOLN NEB SCH (18:00)
[2020-10-16 20:14] VITALS: BP 103/61
[2020-10-16 22:00] VITALS: BP 102/64
[2020-10-16] MEDS ORDERED: BUDESONIDE (INHALATION) 0.5 MG/2 ML NEB NEB SCH (22:00)
[2020-10-16] MEDS ORDERED: hydrALAZINE HCL 25 MG TAB PO SCH (22:00)
[2020-10-17] MEDS ORDERED: SODIUM CHL 0.9% 1000 ML BAG XX ONE (07:00)
[2020-10-17] MEDS ORDERED: CLOPIDOGREL BISULFATE 75 MG TAB PO SCH (10:00)
[2020-10-17] MEDS ORDERED: PNEUMOCOCCAL VACC POLYS 25 MCG/0.5 ML VIAL IM ONE (10:00)
[2020-10-17] MEDS ORDERED: ASPirin 81 mg TAB PO SCH (10:00)
[2020-10-17] MEDS ORDERED: EPOETIN ALFA-EPBX 4,000 UNIT/ML VIAL SC ONE (21:00)
== END 2020-10-16 22:00 | disposition short-term general hospital (02) | DRG 280 ==
LOC: ER 00:14 → EDBD 00:14 → TELE 02:51 → TELE-EAST 04:36
PROVIDERS: ADMIT Nurse Practitioner; ATTEND Internal Medicine
DX: I13.2 Hypertensive heart and chronic kidney disease with heart failure and with stage 5 chronic kidney disease, or end stage renal disease (principal); L89.153 Pressure ulcer of sacral region, stage 3; I21.A1 Myocardial infarction type 2; J96.01 Acute respiratory failure with hypoxia; N18.6 End stage renal disease; I50.23 Acute on chronic systolic (congestive) heart failure; R04.2 Hemoptysis; E11.52 Type 2 diabetes mellitus with diabetic peripheral angiopathy with gangrene; Z68.1 Body mass index [BMI] 19.9 or less, adult; E44.0 Moderate protein-calorie malnutrition; Z99.2 Dependence on renal dialysis; I08.0 Rheumatic disorders of both mitral and aortic valves; D63.1 Anemia in chronic kidney disease; E87.5 Hyperkalemia; E55.9 Vitamin D deficiency, unspecified; Z20.822 Contact with and (suspected) exposure to COVID-19; E11.22 Type 2 diabetes mellitus with diabetic chronic kidney disease; I25.10 Atherosclerotic heart disease of native coronary artery without angina pectoris; I27.20 Pulmonary hypertension, unspecified; Z95.1 Presence of aortocoronary bypass graft; Z95.5 Presence of coronary angioplasty implant and graft
CPT/HCPCS: 36415; 36600; 71045; 71250; 80048; 80053; 82728; 82805; 82962; 83036; 83605; 83615; 83735; 83880; 84132; 84443; 84484; 85025; 85049; 85610; 87040; 87081; 87426; 93005; 93306; 93925; 94640; 96374; 96375; G0378; J0696; J1642; J1815; J2405; J3490